=== PATIENT | male | born 1975 | race Caucasian/White ===

== ENCOUNTER → 2020-12-02 10:06 | Outpatient (BNVA) | payer BC, MEDICAID, SELFPAY | PROVIDERS: PCP Nurse Practitioner Family; Visit Provider Nurse Practitioner Family | DX: G89.29 Other chronic pain (principal); M25.562 Pain in left knee | CPT/HCPCS: 73562 ==

== ENCOUNTER 2020-12-29 08:04 | Outpatient (CLI) | payer BC, MEDICAID, SELFPAY ==
--- NOTE | 2020-12-29 08:00 | MR_ITS ---
WS: [id number] MRI LEFT KNEE HISTORY: M25.562 - Pain in left knee COMPARISON: Radiograph 12/02/2020 Anterior cruciate ligament: Complete tear of the ACL. Redundant ACL. Posterior cruciate ligament: Intact. Medial collateral ligament: Intact. Posterior lateral corner structures: Intact. Medial menisci: Increased signal horizontally within the posterior horn does not extend to an articul ar surface. Normal caliber of both horns. Lateral meniscus: Intact. Normal signal, size and shape. Extensor mechanism: Distal quadriceps tendon and patellar tendons are intact. Fluid and soft tissue: Small suprapatellar joint effusion. No Costa's cyst. Osseous and articular structures: Patellofemoral compartment: 3 mm superficial defect in the cartilage of the lateral patellar facet. N o underlying marrow edema. Medial compartment: No significant narrowing of the medial compartment. There is mild thinning and fi ssuring of the cartilage. Lateral compartment: Moderate narrowing of the lateral compartment. Essentially near complete loss of the cartilage. There is edema within the weightbearing surface of the femoral condyle and also on th e lateral tibial plateau. Focal osteochondral lesion along the posterior weightbearing surface of the femoral condyle measures 7 x 7 mm. There is a smaller osteochondral defect measuring 5 x 4 mm along the posterior weightbearing surface of the tibial plateau. MR/MR knee LT wo con* [id number] IMPRESSION: 1. Complete ACL tear. 2. Moderate lateral compartment internal derangement with loss of cartilage an d osteochondral lesions within the femoral condyle and tibial plateau. No loose fragment identified. 3. Marrow edema lateral femoral condyle and lateral tibial plateau with no fra cture. 4. Small suprapatellar joint effusion.
== END 2020-12-29 08:05 | disposition home or self-care (01) ==
PROVIDERS: PCP Nurse Practitioner Family; Visit Provider Nurse Practitioner Family
DX: S83.512A Sprain of anterior cruciate ligament of left knee, initial encounter (principal); M23.92 Unspecified internal derangement of left knee; M25.462 Effusion, left knee; X58.XXXA Exposure to other specified factors, initial encounter
CPT/HCPCS: 73721

== ENCOUNTER → 2023-07-20 15:22 | Outpatient (BNVA) | payer BC, MEDICAID, SELFPAY | PROVIDERS: PCP Nurse Practitioner Family; Visit Provider Orthopaedic Surgery | DX: M54.9 Dorsalgia, unspecified (principal) | CPT/HCPCS: 72110 ==

== ENCOUNTER 2024-04-06 21:48 | Emergency (ER) | payer BC, MEDICAID, SELFPAY ==
[2024-04-06] VITALS (14 sets, daily range): BP systolic 131–204; BP diastolic 93–140; PULSE 94–128; RESP 14–26; TEMP 36.4; O2SAT 90–100; BMI 28.7
[2024-04-06] MEDS: LORazepam 2 mg/mL INJ 1 mL (22:00)
--- NOTE | 2024-04-06 22:03 | CTR_ITS ---
PROCEDURE INFORMATION: Exam: CT Head Without Contrast Exam date and time: 04/06/2024 10:50 PM Age: 48 years old Clinical indication: EMS arrival for seizure activity; Additional info: New onset seizure TECHNIQUE: Imaging protocol: Computed tomography of the head without contrast. Radiation optimization: All CT scans at this facility use at least one of these dose optimization techniques: automated exposure control; mA and/or kV adjustment per patient size (includes targeted exams where dose is matched to clinical indication); or iterative reconstruction. COMPARISON: No relevant prior studies available. RADIATION DOSE METRICS: Total DLP (mGy-cm): 584.58 FINDINGS: Brain: No intracranial hemorrhage. No edema or mass effect. No significant deep white matter abnormality. Cerebral ventricles: Normal ventricles. Paranasal sinuses: The paranasal sinuses are clear. Mastoid air cells: The mastoid air cells are clear. Bones: No acute osseous abnormalities are seen. Soft tissues: The soft tissues are within normal limits. CT/CT head wo con* [id number] IMPRESSION: No acute intracranial pathology.
--- NOTE | 2024-04-06 22:03 | XRR_ITS ---
PROCEDURE INFORMATION: Exam: XR Right Shoulder Exam date and time: 04/06/2024 10:13 PM Age: 48 years old Clinical indication: Injury or trauma; Blunt trauma (contusions or hematomas); Right; Seizure with fall, visible shoulder deformity TECHNIQUE: Imaging protocol: Radiologic exam of the right shoulder. Views: 2 or more views. COMPARISON: No relevant prior studies available. FINDINGS: Bones/joints: Anterior shoulder dislocation. Flattening of the posterolateral right humeral head, which may represent Hill-Sachs fracture. Lungs: Partially included right lung is clear. Soft tissues: Soft tissue edema. No unexpected radiopaque foreign bodies. XR/XR shoulder RT min 2V* [id number] IMPRESSION: Anterior shoulder dislocation with flattening of the posterolateral humeral head, which likely represents a Hill-Sachs deformity.
[2024-04-06] MEDS: sodium chloride 0.9% 1,000 ML 999 ML IV (22:10)
[2024-04-06 22:11] LABS: Basophils # 0.1 10^3/uL (0.0-0.1); Basophils % 0.2 %; Eosinophils % 0.1 %; Hematocrit 48.6 % (37-53); Lymphocytes # 1.5 10^3/uL (0.8-4.8); Lymphocytes % 7.1 %; Mean Corpuscular HGB Conc 32.9 g/dL (30-55); Mean Corpuscular Hemoglobin 33.6 pg (27-33); Mean Corpuscular Volume 102.1 fl (82-101); Mean Platelet Volume 9.2 fL (7.4-10.4); Monocytes # 1.3 10^3/uL (0.2-0.9); Monocytes % 6.1 %; Neutrophils % 85.8 %; Nucleated Red Blood Cells % 0 %; Platelet Count 327 10^3/cmm (157-399); Red Blood Count 4.76 10^6/uL (3.85-5.65); Red Cell Distribution Width 13.5 % (12.1-15.1); White Blood Count 20.75 10^3/uL (3.29-11.43)
--- NOTE | 2024-04-06 22:15 | PC.NURSE ---
Immediately after triage, pt began having full body tremors, foaming at the mouth, seizure like activity lasting roughly 1min. IV access was obtained, 2mg Ativan given as ordered.
[2024-04-06 22:20] LABS: Bilirubin Urine Negative (Negative); Blood Urine Non-haemolysed trace (Negative); Glucose Urine UA Negative (Normal); Ketones Urine 1+ (Negative); Leukocyte Esterase Urine Negative (Negative); Nitrate Urine Negative (Negative); Protein Urine 1+ (Negative); Specific Gravity, Urine 1.024 (1.005-1.030); Urine Appearance Clear (CLEAR); Urine Color Yellow (Yellow); Urobilinogen Urine 0.2 mg/dL (Negative); pH Urine 5.5 (5-7)
[2024-04-06 22:25] LABS: Add Urine Microscopic? YES; Bacteria Urine None Seen /hpf; Hyaline Casts Urine 9.91 /lpf; Squamous Epithelial Cell Urine 0-5 /hpf (0-5)
[2024-04-06 22:27] LABS: Alanine Aminotransferase 36 U/L (0-41); Albumin Level 4.5 g/dL (3.5-5.2); Alkaline Phosphatase 126 U/L (40-130); Anion Gap 28.6 (5-19); Aspartate Amino Transferase 35 U/L (0-40); Blood Urea Nitrogen 15 mg/dL (6-20); Calcium 9.2 mg/dL (8.5-10.5); Carbon Dioxide 17 mmol/L (22-29); Chloride 102 mmol/L (98-107); Creatinine Clr Calc Pharmacy 87.1319; Globulin 3.3 g/dL (1.3-4.6); Glomerular Filtration Rate 65.2 mL/min (90-130); Glucose 149 mg/dL (65-115); Osmolality Calculated 302 mOsm/kg (285-295); Potassium 3.6 mmol/L (3.5-5.1); Sodium 144 mmol/L (136-145); Total Bilirubin 0.3 mg/dL (0.15-1.2); Total Protein 7.8 g/dL (6.6-8.7)
[2024-04-06 22:27] LABS: Amphetamines Screen Urine Positive (Negative); Barbiturates Screen Urine Negative (Negative); Benzodiazepines Screen Urine Negative (Negative); Cocaine Screen Urine Negative (Negative); Opiate Screen Urine Negative (Negative); PCP Screen Urine Negative (Negative); THC Screen Urine Positive (Negative)
[2024-04-06 22:31] LABS: Alcohol Level < 10 mg/dL (0-10)
[2024-04-06 22:41] LABS: Mucus Urine 1+ /hpf; UA Slide Review UA Slide Review Perf
[2024-04-06 22:42] LABS: Add Urine Culture? No; Sperm Urine 1+ /hpf
[2024-04-06 23:06] LABS: Lactic Sepsis W/Reflex 13.3 mmol/L (0.5-2.2)
[2024-04-06] MEDS: etomidate 2 mg/mL INJ SDV 10 mL 27.22 MG IVP ×2 (23:27→23:33)
--- NOTE | 2024-04-06 23:50 | XRR_ITS ---
PROCEDURE INFORMATION: Exam: XR Right Shoulder Exam date and time: 04/06/2024 11:14 PM Age: 48 years old Clinical indication: Injury or trauma; Right; EMS arrival for seizure with fall. Patient sustained RT shoulder dislocation. Check S/P attempted reduction. ; Additional info: Post reduction TECHNIQUE: Imaging protocol: Radiologic exam of the right shoulder. Views: 2 or more views. COMPARISON: CR (CHEST, ) 04/06/2024 10:13 PM FINDINGS: Bones/joints: Anterior inferior dislocation of the right glenohumeral joint with associated Hill-Sachs deformity. No other evidence of acute fracture or dislocation. Soft tissues: The soft tissues are within normal limits. XR/XR shoulder RT min 2V* [id number] IMPRESSION: Anterior inferior dislocation of the right glenohumeral joint with associated Hill-Sachs deformity.
--- NOTE | 2024-04-06 23:50 | XRR_ITS ---
PROCEDURE INFORMATION: Exam: XR Left Shoulder Exam date and time: 04/06/2024 11:51 PM Age: 48 years old Clinical indication: EMS arrival for seizure with fall. C/O left shoulder pain. TECHNIQUE: Imaging protocol: Radiologic exam of the left shoulder. Views: 2 or more views. COMPARISON: No relevant prior studies available. FINDINGS: Bones/joints: Dislocation of the left glenohumeral joint, likely anterior inferior though only 1 view is provided. Fracture fragment likely arising from greater tuberosity. Soft tissues: Soft tissue swelling. XR/XR shoulder LT 1V [id number] IMPRESSION: 1. Dislocation of the left glenohumeral joint, likely anterior inferior though only 1 view is provided. 2. Fracture fragment likely arising from greater tuberosity.
--- NOTE | 2024-04-06 23:52 | PM.HP ---
Providers/Chief Complaint Primary Care Provider: GIANNA Guevara Chief Complaint: SEIZURE History of Present Illness Dariusz Caceres is a 48 year old male Medications/Allergies Home Medications ?Medication ?Instructions ?Recorded ?Confirmed ?Last Taken ?Type buprenorphine HCl 8 mg sublingual 8 mg sublingual TID 10/06/20 07/25/23 Unknown History tablet gabapentin 800 mg tablet 800 mg PO TID #270 tabs 07/25/23 07/25/23 Unknown Rx Allergies Allergy/AdvReac Type Severity Reaction Status Date / Time No Known Allergies Allergy Verified 07/25/23 14:11 PFSH Acute PFSH: Medical History History of narcotic addiction Surgical History Hx of appendectomy Family History Grandmother Hypertension Social History Smoking and tobacco/nicotine status: current every day tobacco/nicotine user Second hand smoke exposure: Yes Alcohol intake: never Substance/Drug Use: never Adopted: No Caregiver/support person: No Lives independently: Yes Household members: spouse Housing: House Marital status: Number of children: 2 Highest education level completed: High School Graduate service: No Current occupational status: unemployed Vitals/I&O/Wt Last Vital Signs Temp 97.5 F L 04/06/24 21:48 Pulse 95 04/06/24 21:48 Resp 14 04/06/24 21:48 BP 131/93 04/06/24 21:48 Pulse Ox 92 04/06/24 21:48 O2 Del Method Room Air 04/06/24 21:48 04/06/24 04/06/24 04/07/24 14:59 22:59 06:59 Intake Total 0 / 0 Balance 0 / 0 Weight last 48 hrs Weight 90.718 kg Data 04/06/24 22:04 04/06/24 22:04 Micro: Microbiology 04/06/24 22:40 Blood Culture - Preliminary Blood SPECIMEN COLLECTED 04/06/24 22:09 Blood Culture - Preliminary Blood SPECIMEN COLLECTED A&P PDMP PDMP Reviewed: Not Reviewed Coding Level of Care Code Acute Code for Chg Fwd
[2024-04-07] VITALS (40 sets, daily range): BP systolic 135–169; BP diastolic 94–124; PULSE 84–110; RESP 14–30; O2SAT 90–98
--- NOTE | 2024-04-07 00:03 | ECG_ITS ---
[facility] Test Date: 2024-04-07 Pat Name: Dariusz Caceres Department: Room: Gender: Male [employer]iller: : 1975 Requested By: Charly Forman Order Number: [id number] Eric MD: Tereso Marinelli M.D. Measurements Intervals [place] Rate: 99 P: 50 CO: 128 QRS: 51 QRSD: 97 T: 53 QT: 378 QTc: 485 Interpretive Statements SINUS RHYTHM No previous ECG available for comparison Electronically Signed On 04-07-2024 18:51:23 [employer] by Tereso Marinelli M.D. [email or web address]
[2024-04-07 00:17] LABS: Reflex Lactate Order REFLEX LACTIC ORDERD
--- NOTE | 2024-04-07 00:24 | PM.CONSULT ---
Providers/Reason For Consult Consulting Physician/Specialty*: Internal medicine Reason for Consult*: Medical management Primary Care Provider: GIANNA Guevara History of Present Illness History of Present Illness Dariusz Caceres is a 48 year old male with a past medical history significant for polysubstance abuse who presents emergency department with seizure-like activity. Upon assessment, patient is awake but slightly lethargic. He is interactive but dozes off within about a minute. Collateral information in the ED provider reports patient presented seizing. He was treated for seizure for which the seizure broke. Patient denies any history of known seizure. Denies seizure disorder. Denies similar episodes. Patient reports he was stretching his shoulders prior to this happening. Patient also complains of bilateral shoulder pains. Plain films show dislocation of the left glenohumeral joint with fracture fragment suspected from greater tuberosity. His right shoulder is also dislocated. Attempts were made by ED provider to reduce were unsuccessful. Orthopedic surgery was reportedly consulted recommending transfer to higher level of care with shoulder specialized orthopedics. Other pertinent workup in the ED revealed leukocytosis to 20.75 metabolic acidosis to 17 mmol/L, severe lactic acidosis to 13.3 mmol/L and positive drug screen for marijuana and amphetamines. Review of Systems Narrative: A complete review of systems was obtained and is negative except as stated in HPI. Medications/Allergies Home Medications ?Medication ?Instructions ?Recorded ?Confirmed ?Last Taken ?Type buprenorphine HCl 8 mg sublingual 8 mg sublingual TID 10/06/20 07/25/23 Unknown History tablet gabapentin 800 mg tablet 800 mg PO TID #270 tabs 07/25/23 07/25/23 Unknown Rx Allergies Allergy/AdvReac Type Severity Reaction Status Date / Time No Known Allergies Allergy Verified 07/25/23 14:11 PFSH Acute PFSH: Medical History History of narcotic addiction Surgical History Hx of appendectomy Family History Grandmother Hypertension Social History Smoking and tobacco/nicotine status: current every day tobacco/nicotine user Second hand smoke exposure: Yes Alcohol intake: never Substance/Drug Use: never Adopted: No Caregiver/support person: No Lives independently: Yes Household members: spouse Housing: House Marital status: Number of children: 2 Highest education level completed: High School Graduate service: No Current occupational status: unemployed Vitals/I&O/Wt Last Vital Signs Temp 97.5 F L 04/06/24 21:48 Pulse 95 04/06/24 21:48 Resp 14 04/06/24 21:48 BP 131/93 04/06/24 21:48 Pulse Ox 92 04/06/24 21:48 O2 Del Method Room Air 04/06/24 21:48 04/06/24 04/06/24 04/07/24 14:59 22:59 06:59 Intake Total 0 / 0 Balance 0 / 0 Weight last 48 hrs Weight 90.718 kg Physical Exam Narrative: General: Patient is awake but lethargic. Restless. Head: Normocephalic. Atraumatic. EOM intact. Neck: No JVD. Cardiovascular: RRR. No gallops. No murmurs. Lungs: Clear to auscultation, no use of accessory muscles, no crackles or wheezes. Skin: No jaundice. No rashes. Abdomen: Normal bowel sounds, abdomen soft and nontender. Extremities: No cyanosis or clubbing. Musculoskeletal: No swollen or erythematous joints. Shoulder joints were not examined due to severe pain from known dislocations. Neurological: Moves all 4 extremities. No myoclonus. Data 04/06/24 22:04 04/06/24 22:04 Micro: Microbiology 04/06/24 22:40 Blood Culture - Preliminary Blood SPECIMEN COLLECTED 04/06/24 22:09 Blood Culture - Preliminary Blood SPECIMEN COLLECTED A&P Assessment and plan (1) Shoulder pain: Bilateral shoulder dislocation Left shoulder with concern for fracture greater tuberosity Orthopedic surgery recommends transfer to tertiary center Analgesics as needed Supportive care (2) Seizure-like activity: Erin seizure-like activity upon arrival to the ED Lactic acidosis consistent with seizing event Patient will eventually need MRI and EEG He would likely benefit from a neurology consult excepting facility Will start Keppra IV while awaiting transfer Ativan as needed for seizure-like activity Seizure precautions (3) Lactic acidosis: Lactic/metabolic acidosis Strongly suspect lactic acidosis is related to seizure-like event Monitor for evidence of infection (4) Leukocytosis: Suspect stress-induced Monitor for signs and symptoms of infection (5) Substance abuse: Polysubstance abuse UDS positive for amphetamines and marijuana Seizure could be related to substance intoxication Plan Starting antiepileptic, seizure precautions, pain control, and agree with transfer. PDMP PDMP Reviewed: Not Reviewed Consult Attestations Medical Necessity Statement: Thank you for this consultation. Hospital service will follow while patient is awaiting for transfer. Coding Level of Care Code Acute Code for [facility] Fwd Diagnoses Shoulder pain M25.519 Seizure-like activity R56.9 Lactic acidosis E87.20 Leukocytosis D72.829 Substance abuse F19.10
[2024-04-07] MEDS: sodium chloride 0.9% 1,000 ML 999 ML IV ×2 (00:53→01:46)
--- NOTE | 2024-04-07 01:02 | PC.NURSE ---
04/06/244: Seizure activity noted lasting for around 1 minute as this nurse attempted to obtain IV access. Patient placed on 15L non rebreather mask, and turned onto his side. Dr. Forman notified and at bedside. IV access obtained via ultrasound and 2mg of ativan administered IVP per APR.
[2024-04-07 01:13] LABS: Lactic Acid level (Lactate) 1.8 mmol/L (0.5-2.2)
--- NOTE | 2024-04-07 01:14 | PC.NURSE ---
04/06/2024 2210: Seizure pads applied to bed rails.
[2024-04-07 01:26] LABS: Procalcitonin 0.05 ng/mL (0-0.5)
[2024-04-07] MEDS: HYDROMORPHONE HCL 0.5 MG/0.5 ML INJ IVP ×3 (01:26→07:05)
[2024-04-07] MEDS: levETIRAcetam 1,000 MG/100 ML PREMIX 400 MG IV (01:28)
[2024-04-07] MEDS: ondansetron 2 mg/ML SDV 2 mL 4 MG IVP (01:28)
--- NOTE | 2024-04-07 01:46 | ED_ITS ---
HPI - Seizure 2 General: Chief Complaint: Seizure Stated Complaint: SEIZURE Time Seen by Provider: 04/06/24 21:52 History of Present Illness: HPI Narrative: This patient is a 48-year-old white male who was brought in by EMS was having an active seizure. I discussed the case with the buyers' agent initially. Paramedics states that the patient showed up at their facility stating that he thought he had a right shoulder dislocation. Patient told them this happened when he was just stretching his shoulders. EMS recommended he come to the hospital for evaluation. Patient wanted to go by private vehicle so he contacted his girlfriend. Evidently when he got in his girlfriend's car he started having a seizure and then was subsequently brought in by EMS. Patient does not have a history of seizures. Upon arrival here he was actively seizing. We did give him 2 mg of Ativan IV. This did stop the seizure. Patient denied recent drug use. States he has a history of drug abuse but has not used for 2 years. Patient complains of pain in both shoulders. Seizure History: No Place: passenger seat of car Related Data Home Medications ?Medication ?Instructions ?Recorded ?Confirmed buprenorphine HCl 8 mg sublingual 8 mg sublingual TID 10/06/20 07/25/23 tablet Previous Rx's ?Medication ?Instructions ?Recorded gabapentin 800 mg tablet 800 mg PO TID #270 tabs 06/13 Allergies Allergy/AdvReac Type Severity Reaction Status Date / Time No Known Allergies Allergy Verified 07/25/23 14:11 Review of Systems 2 General: Reports: 10 or more systems reviewed and unremarkable except in HPI and below Musc: Reports: other (Bilateral shoulder pain.) Neuro: Reports: seizure-like activity PFS ED 2 PFSH: Medical History History of narcotic addiction Surgical History Hx of appendectomy Family History Grandmother Hypertension Social History Smoking and tobacco/nicotine status: current every day tobacco/nicotine user Second hand smoke exposure: Yes Alcohol intake: never Substance/Drug Use: never Adopted: No Caregiver/support person: No Lives independently: Yes Household members: spouse Housing: House Marital status: Number of children: 2 Highest education level completed: High School Graduate service: No Current occupational status: unemployed Physical Exam 2 Const: COMMON NORMALS: patient oriented x3 and no limitations GENERAL APPEARANCE: cooperative HENMT: COMMON NORMALS: normocephalic, atraumatic, Normal nasal mucous membranes and turbinates present, moist oral mucous membranes and oropharynx normal HEAD & SCALP: normal to inspection, normocephalic and atraumatic F SHIVANI & SINUS: normal facial exam NOSE: Normal nasal mucous membranes and turbinates present Eye: COMMON NORMALS: Equal, round and reactive pupils present, EOMs intact bilaterally and conjunctivae normal GENERAL EYE: appearance normal, both eyes and all related structures CONJUNCTIVA: Yes conjunctivae normal PUPIL: Yes Equal, round and reactive pupils present Neck/C-Spine: COMMON NORMALS: supple and no JVD Chest: COMMONS NORMALS: normal inspection of the chest Resp: COMMON NORMALS: normal respiratory effort and clear to auscultation bilaterally AUSCULTATION: clear to auscultation bilaterally Cardio: COMMON NORMALS: no JVD, regular rate, regular rhythm, No gallops present (Cardio), No murmurs present (Cardio) and No rub (Cardio) RATE: r egular rate RHYTHM: regular rhythm GI: COMMON NORMALS: Normal to inspection, nondistended, normoactive bowel sounds present, Soft to palpation and non-tender AUSCULTATION: Yes normoactive bowel sounds PALPATION: Yes Soft to palpation : COMMON NORMALS: Yes no CVA tenderness BLADDER/KIDNEY EXAM: Yes no CVA tenderness Back/Pelvis: COMMON NORMALS: no CVA tenderness and thoracic and lumbar spine normal to inspection Extremity: NARRATIVE EXTREMITY EXAM: Right shoulder appears to be dislocated anteriorly. Painful range of motion. Left shoulder also appears to be dislocated anteriorly with painful range of motion. Neuro: COMMON NORMALS: patient oriented x3 and CN's II-XII intact bilaterally OTHER: Upon arrival the patient was having a grand mal seizure. He was given 2 mg of Ativan IV and seizure resolved. Repeat neuroexam later during the ER stay was normal. Psych: COMMON NORMALS: mental status grossly normal, Normal thought process present and cooperative THOUGHT PROCESS: Normal thought process present Skin: COMMON NORMALS: no rashes or lesions noted, turgor normal and no jaundice GENERAL SKIN EXAM: no rashes or lesions noted and turgor normal Procedures Orthopedic Joint Reduction Joint #1: Side: right Joint Reduction Location: shoulder Analgesia: procedural sedation Shoulder Technique Used (if applicable): traction/counter-traction Post-reduction neuro exam: intact Post-reduction vascular: intact Post Reduction X-Ray Obtained: Yes Post Reduction X-Ray Results: not reduced Course 2 Vital Signs: Vital signs: Vital Signs Temperature 97.5 F L 04/06/24 21:48 Pulse Rate 105 H 04/07/24 01:00 Respiratory Rate 25 H 04/07/24 01:00 Blood Pressure 148/110 04/07/24 01:00 Pulse Oximetry 96 04/07/24 01:00 Oxygen Delivery Me thod Non-Rebreather 04/06/24 22:00 Oxygen Flow Rate 15 04/06/24 22:00 MDM - Seizure MDM Narrative Medical decision making narrative: Head CT was read by the radiologist as normal. X-ray of the right shoulder does reveal an anterior dislocation. Reduction was attempted after sedation with etomidate. I was able to reduce it but it easily slipped back out. X-ray of the left shoulder reveals a fracture dislocation. EKG was normal. CBC reveals white blood cell count of 20.7. CMP was normal. Blood alcohol level was 0. Urinalysis normal. Urine drug screen was positive for amphetamines and THC. Lactic acid was 13.3. I initially discussed the case with our hospitalist Dr. Tejada. He is concerned with keeping him here is that we do not have neurology coverage this weekend and we are unable to get an EEG on this patient. He also recommended contacting Ortho. I did discuss the case with Dr. Dejesus, orthopedic surgeon. She stated that she does not do any shoulder reconstruction and she thought this patient may need that and she recommends transferring to another facility. [facility] [place] and spoke with Dorie. She did have the orthopedist review the x-rays who recommended transferring the patient to the emergency department for reduction and subsequent admission with neurology consultation regarding the first-time seizure. I then discussed the case with Dr. Lui, ER physician. He did accept the patient for transfer. Patient will be transferred shortly. He is stable. Patient was also given 500 mg of Keppra, 0.5 mg of Dilaudid and 4 mg of Zofran IV. Lab Data 04/06/24 22:04 04/06/24 22:04 Labs: Radiology Impressions Head CT 04/06/24 22:03 IMPRESSION: No acute intracranial pathology. Shoulder X-Ray 04/06/24 23:50 IMPRESSION: 1. Dislocation of the left glenohumeral joint, likely anterior inferior though only 1 view is provided. 2. Fracture fragment likely arising from greater tuberosity. Laboratory Results WBC 20.75 10^3/uL (3.29-11.43) H 04/06/24 22:04 RBC 4.76 10^6/uL (3.85-5.65) 04/06/24 22:04 Hgb 16.00 g/dL (11.27-16.99) 04/06/24 22:04 Hct 48.6 % (37-53) 04/06/24 22:04 MCV 102.1 fl (82-101) H 04/06/24 22:04 MCH 33.6 pg (27-33) H 04/06/24 22:04 MCHC 32.9 g/dL (30-55) 04/06/24 22:04 RDW 13.5 % (12.1-15.1) 04/06/24 22:04 Plt Count 327 10^3/cmm (157-399) 04/06/24 22:04 MPV 9.2 fL (7.4-10.4) 04/06/24 22:04 Neut % (Auto) 85.8 % 04/06/24 22:04 Lymph % (Auto) 7.1 % 04/06/24 22:04 [place] % (Auto) 6.1 % 04/06/24 22:04 Eos % (Auto) 0.1 % 04/06/24 22:04 Baso % (Auto) 0.2 % 04/06/24 22:04 Neut # (Auto) 17.80 10^3/uL (1.8-7.7) H 04/06/24 22:04 Lymph # (Auto) 1.5 10^3/uL (0.8-4.8) 04/06/24 22:04 [place] # (Auto) 1.3 10^3/uL (0.2-0.9) H 04/06/24 22:04 Eos # (Auto) 0.0 10^3/uL (0.0-0.8) 04/06/24 22:04 Baso # (Auto) 0.1 10^3/uL (0.0-0.1) 04/06/24 22:04 Nucleated RBC % (auto) 0 % 04/06/24 22:04 Nucleated RBCs # 0.0 /100WBC 04/06/24 22:04 Sodium 144 mmol/L (136-145) 04/06/24 22:04 Potassium 3.6 mmol/L (3.5-5.1) 04/06/24 22:04 Chloride 102 mmol/L (98-107) 04/06/24 22:04 Carbon Dioxide 17 mmol/L (22-29) L 04/06/24 22:04 Anion Gap 28.6 (5-19) H 04/06/24 22:04 BUN 15 mg/dL (6-20) 04/06/24 22:04 Creatinine 1.2 mg/dL (0.7-1.2) 04/06/24 22:04 GFR Calculation 65.2 mL/min (90-130) L 04/06/24 22:04 Glucose 149 mg/dL (65-115) H 04/06/24 22:04 Calculated Osmolality 302 mOsm/kg (285-295) H 04/06/24 22:04 Lactic Acid 13.3 mmol/L (0.5-2.2) H* 04/06/24 22:04 Lactic Acid (Sepsis) 1.8 mmol/L (0.5-2.2) 04/07/24 00:49 Calcium 9.2 mg/dL (8.5-10.5) 04/06/24 22:04 Total Bilirubin 0.3 mg/dL (0.15-1.2) 04/06/24 22:04 AST 35 U/L (0-40) 04/06/24 22:04 ALT 36 U/L (0-41) 04/06/24 22:04 Alkaline Phosphatase 126 U/L (40-130) 04/06/24 22:04 Total Protein 7.8 g/dL (6.6-8.7) 04/06/24 22:04 Albumin 4.5 g/dL (3.5-5.2) 04/06/24 22:04 Globulin 3.3 g/dL (1.3-4.6) 04/06/24 22:04 Procalcitonin 0.05 ng/mL (0-0.5) 04/06/24 22:04 Urine Color Yellow (Yellow) 04/06/24 22:13 Urine Appearance Clear (CLEAR) 04/06/24 22:13 Urine pH 5.5 (5-7) 04/06/24 22:13 Ur Specific [place] 1.024 (1.005-1.030) 04/06/24 22:13 Urine Protein 1+ (Negative) A 04/06/24 22:13 Urine Glucose (UA) Negative (Normal) 04/06/24 22:13 Urine Ketones 1+ (Negative) H 04/06/24 22:13 Urine Blood Non-haemolysed trace (Negative) 04/06/24 22:13 Urine Nitrate Negative (Negative) 04/06/24 22:13 Urine Bilirubin Negative (Negative) 04/06/24 22:13 Urine Urobilinogen 0.2 mg/dL (Negative) 04/06/24 22:13 Ur Leukocyte Esterase Negative (Negative) 04/06/24 22:13 Urine RBC 3-5 /hpf (0-2) 04/06/24 22:13 Urine WBC 6-10 /hpf (0-5) 04/06/24 22:13 Ur Squamous Epith Cells 0-5 /hpf (0-5) 04/06/24 22:13 Amorphous Sediment Not Reportable 04/06/24 22:13 Urine Bacteria None seen /hpf (NONE) 04/06/24 22:13 Hyaline Casts 9.91 /lpf 04/06/24 22:13 Urine Mucus 1+ /hpf 04/06/24 22:13 Urine Sperm 1+ /hpf 04/06/24 22:13 Urine Opiates Screen Negative ng/mL (Negative) 04/06/24 22:13 Ur Barbiturates Screen Negative ng/mL (Negative) 04/06/24 22:13 Ur Phencyclidine Scrn Negative ng/mL (Negative) 04/06/24 22:13 Ur Amphetamines Screen Positive ng/mL (Negative) H 04/06/24 22:13 U Benzodiazepines Scrn Negative ng/mL (Negative) 04/06/24 22:13 Urine Cocaine Screen Negative ng/mL (Negative) 04/06/24 22:13 U Marijuana (THC) Screen Positive ng/mL (Negative) H 04/06/24 22:13 Ethyl Alcohol < 10 mg/dL (0-10) 04/06/24 22:04 All radiology interpretation(s) finalized by discharge Discharge Plan Discharge Patient Disposition: Xfer Short-Term Hosp Clinical Impression: Seizure Anterior shoulder dislocation Qualifiers: Encounter type: initial encounter Laterality: right Qualified Code(s): S43.014A - Anterior dislocation of right humerus, initial encounter Dislocation of shoulder Qualifiers: Encounter type: initial encounter Laterality: left Qualified Code(s): S43.005A - Unspecified dislocation of left shoulder joint, initial encounter Condition: Stable Referrals: Sowmya Drew FNP-C [Primary Care Provider] - Print Language: Honduran Coding Level of Care Code ED Wound Care Specialist for Uriel Sommer
[2024-04-07 02:43] LABS: Influenza A NEGATIVE (Negative); Influenza B NEGATIVE (Negative); Respiratory Syncytial Virus Ce NEGATIVE (Negative); SARS-CoV-2 PCR NEGATIVE (Negative)
[2024-04-07] MEDS: HYDROcodone-acetaminophen 5-325 mg Tablet 1 TAB PO ×2 (02:56→07:53)
--- NOTE | 2024-04-07 03:48 | PC.NURSE ---
Patient sleeping in bed at this time.
[2024-04-07 05:41] LABS: Basophils % 0.2 %; Eosinophils % 0.2 %; Hematocrit 41.3 % (37-53); Lymphocytes % 20.9 %; Mean Corpuscular HGB Conc 33.9 g/dL (30-55); Mean Corpuscular Hemoglobin 33.9 pg (27-33); Mean Platelet Volume 9.1 fL (7.4-10.4); Monocytes # 0.9 10^3/uL (0.2-0.9); Monocytes % 9.1 %; Neutrophils # 6.67 10^3/uL (1.8-7.7); Neutrophils % 69.2 %; Nucleated Red Blood Cells % 0 %; Platelet Count 266 10^3/cmm (157-399); Red Blood Count 4.13 10^6/uL (3.85-5.65); Red Cell Distribution Width 13.9 % (12.1-15.1); White Blood Count 9.64 10^3/uL (3.29-11.43)
[2024-04-07 05:57] LABS: Albumin Level 3.7 g/dL (3.5-5.2); Anion Gap 15.1 (5-19); Blood Urea Nitrogen 10 mg/dL (6-20); Calcium 7.9 mg/dL (8.5-10.5); Carbon Dioxide 23 mmol/L (22-29); Chloride 106 mmol/L (98-107); Glomerular Filtration Rate 121.4 mL/min (90-130); Glucose 108 mg/dL (65-115); Phosphorus 2.6 mg/dL (2.5-4.5); Potassium 4.1 mmol/L (3.5-5.1); Sodium 140 mmol/L (136-145)
[2024-04-07] MEDS: levETIRAcetam 1,000 mg/10 mL UDC 500 MG PO (08:40)
== END 2024-04-07 08:55 | disposition short-term general hospital (02) ==
PROVIDERS: Internal Medicine; Emergency Provider Emergency Medicine; PCP Nurse Practitioner Family
DX: R56.9 Unspecified convulsions (principal); S43.014A Anterior dislocation of right humerus, initial encounter; W19.XXXA Unspecified fall, initial encounter; Z72.0 Tobacco use
CPT/HCPCS: 23650; 36415; 70450; 73020; 73030; 80053; 80069; 80306; 80307; 81001; 83605; 84145; 85025; 87040; 87637; 93005; 94799; 96361; 96365; 96375; 96376; 99291; J1171; J1953; J2060; J2405; J3490; J7030